=== PATIENT | female | born 1940 | race Caucasian/White ===

== ENCOUNTER → 2018-05-31 | Outpatient (CLI) | payer OTHER ==
[2018-05-31 14:03] LABS: HEMOGLOBIN 14.4 g/dl (12.0-15.5); MEAN CORPUSCULAR HEMOGLOBIN 30.1 pg (27.0-33.0); MEAN CORPUSCULAR HGB CONC 32.7 g/dl (32.0-36.5); MEAN CORPUSCULAR VOLUME 92.1 fl (80.0-96.0); PLATELET COUNT, AUTOMATED 144 10^3/uL (150-450); RED BLOOD COUNT 4.78 10^6/uL (4.00-5.40); RED CELL DISTRIBUTION WIDTH 12.2 % (11.5-14.5); WHITE BLOOD COUNT 19.1 10^3/uL (4.0-10.0)
[2018-05-31 14:18] LABS: ALBUMIN 4.4 GM/DL (3.2-5.2); ALBUMIN/GLOBULIN RATIO 1.76 (1.00-1.93); ALKALINE PHOSPHATASE 62 U/L (45-117); ALT/SGPT 17 U/L (12-78); ANION GAP 7 MEQ/L (8-16); AST/SGOT 12 U/L (7-37); BILIRUBIN,TOTAL 0.5 MG/DL (0.2-1.0); BLOOD UREA NITROGEN 16 MG/DL (7-18); CALCIUM LEVEL 9.4 MG/DL (8.8-10.2); CARBON DIOXIDE LEVEL 31 MEQ/L (21-32); CHLORIDE LEVEL 101 MEQ/L (98-107); CHOLESTEROL LEVEL 133 MG/DL (<200); CHOLESTEROL RISK RATIO 2.293 (<5); CREATININE FOR GFR 0.57 MG/DL (0.55-1.30); GLOMERULAR FILTRATION RATE > 60.0 (>39); GLUCOSE, FASTING 99 MG/DL (70-100); HDL CHOLESTEROL 58 MG/DL (>40); LDL CHOLESTEROL 59 MG/DL (<100); NON-HDL-C 75 MG/DL; POTASSIUM SERUM 3.9 MEQ/L (3.5-5.1); SODIUM LEVEL 139 MEQ/L (136-145); TOTAL PROTEIN 6.9 GM/DL (6.4-8.2); TRIGLYCERIDES LEVEL 78 MG/DL (<150)
[2018-05-31 14:45] LABS: ESTIMATED AVERAGE GLUCOSE 143 MG/DL (60-110); HEMOGLOBIN A1c 6.6 %
== END ==
LOC: M SMT 10:29
DX: E11.9 Type 2 diabetes mellitus without complications (principal); I10 Essential (primary) hypertension; E78.5 Hyperlipidemia, unspecified
CPT/HCPCS: 80053

== ENCOUNTER → 2018-05-31 | Outpatient (CLI) | payer OTHER ==
[2018-05-31 14:11] LABS: ALBUMIN 4.3 GM/DL (3.2-5.2); ANION GAP 6 MEQ/L (8-16); BLOOD UREA NITROGEN 15 MG/DL (7-18); CALCIUM LEVEL 9.5 MG/DL (8.8-10.2); CARBON DIOXIDE LEVEL 32 MEQ/L (21-32); CHLORIDE LEVEL 101 MEQ/L (98-107); CREATININE FOR GFR 0.56 MG/DL (0.55-1.30); GLOMERULAR FILTRATION RATE > 60.0 (>39); GLUCOSE, FASTING 100 MG/DL (70-100); PHOSPHORUS LEVEL 3.4 MG/DL (2.5-4.9); POTASSIUM SERUM 3.8 MEQ/L (3.5-5.1); SODIUM LEVEL 139 MEQ/L (136-145)
[2018-06-01 14:06] LABS: HEMOGLOBIN 14.4 g/dl (12.0-15.5); MEAN CORPUSCULAR HEMOGLOBIN 30.1 pg (27.0-33.0); MEAN CORPUSCULAR HGB CONC 32.7 g/dl (32.0-36.5); MEAN CORPUSCULAR VOLUME 92.1 fl (80.0-96.0); PLATELET COUNT, AUTOMATED 144 10^3/uL (150-450); RED BLOOD COUNT 4.78 10^6/uL (4.00-5.40); RED CELL DISTRIBUTION WIDTH 12.2 % (11.5-14.5); WHITE BLOOD COUNT 19.1 10^3/uL (4.0-10.0)
== END ==
LOC: M SMT 10:39
DX: I11.9 Hypertensive heart disease without heart failure (principal); I25.10 Atherosclerotic heart disease of native coronary artery without angina pectoris

== ENCOUNTER → 2018-05-31 | Outpatient (CLI) | payer OTHER ==
[2018-05-31 14:43] LABS: ALBUMIN 4.4 GM/DL (3.2-5.2); ALBUMIN/GLOBULIN RATIO 1.57 (1.00-1.93); ALKALINE PHOSPHATASE 66 U/L (45-117); ALT/SGPT 19 U/L (12-78); ANION GAP 7 MEQ/L (8-16); AST/SGOT 9 U/L (7-37); BILIRUBIN,TOTAL 0.5 MG/DL (0.2-1.0); BLOOD UREA NITROGEN 16 MG/DL (7-18); CALCIUM LEVEL 9.3 MG/DL (8.8-10.2); CARBON DIOXIDE LEVEL 31 MEQ/L (21-32); CHLORIDE LEVEL 99 MEQ/L (98-107); CHOLESTEROL LEVEL 136 MG/DL (<200); CHOLESTEROL RISK RATIO 2.385 (<5); CREATININE FOR GFR 0.57 MG/DL (0.55-1.30); GLOMERULAR FILTRATION RATE > 60.0 (>39); GLUCOSE, FASTING 103 MG/DL (70-100); HDL CHOLESTEROL 57 MG/DL (>40); LDL CHOLESTEROL 63 MG/DL (<100); NON-HDL-C 79 MG/DL; POTASSIUM SERUM 3.8 MEQ/L (3.5-5.1); SODIUM LEVEL 137 MEQ/L (136-145); TOTAL PROTEIN 7.2 GM/DL (6.4-8.2); TRIGLYCERIDES LEVEL 79 MG/DL (<150)
[2018-05-31 14:47] LABS: MALB URINE SIEMENS 14.1 MG/L
[2018-05-31 14:51] LABS: MAU/CREAT RATIO 11.9 MCG/MG (0.0-30.0)
== END ==
LOC: M SMT 10:36
DX: E11.9 Type 2 diabetes mellitus without complications (principal)
CPT/HCPCS: 80053; 82043

== ENCOUNTER → 2018-06-02 | Outpatient (CLI) | payer OTHER, MEDICAID | LOC: M SLEEP 20:00 | DX: G47.33 Obstructive sleep apnea (adult) (pediatric) (principal) | CPT/HCPCS: 95810 ==

== ENCOUNTER → 2018-08-11 | Outpatient (CLI) | payer MEDICARE ==
[~2018-08-11] MED LIST: ALEN70TA57 PO; ASPI1TAB PO; ATEN50TA2 PO; CETI10TA PO; CLOP75TA2 PO; CRES20TA PO; EPIP0.3I2 IJ; FISH1000 PO; GLUCTAB PO; INCR1INH IN; LOSA50TA88 PO; NITR4TASL SL; OXYB10TA PO; PANT40TA3 PO; SPIR-10 PO; VITA200016 PO
--- NOTE | 2018-08-14 11:17 | SLEEPCENT ---
DATE OF PROCEDURE: 08/11/2018 ORDERING PROVIDER: Dr. Frances Nocturnal polysomnography was performed for retitration of pressure therapy in this patient with obstructive sleep apnea syndrome. Apnea-hypopnea index 11.2. For testing, the patient was fit with a [employer] nasal pillows device of small size, 4 cm of water pressure were applied to the circuit, and the lights were extinguished. 7 hours and 13 minutes of data were reviewed. There were 311 minutes of sleep identified. Sleep latency was normal at 27 minutes. Rapid eye movement (REM) latency was normal at 68 minutes. Sleep architecture was fair with some fragmentation late in the study. There were three REM cycles noted. Overall sleep efficiency was 74%. Electrocardiogram showed a sinus rhythm with PVCs. Average heart rate was 56 beats per minute. Electroencephalogram (EEG) showed reasonably normal waveforms for awake and sleep. Respiratory events were reasonably palliated with CPAP at a pressure of +10. There was some mild breakthrough hypopneas but minimal desaturations at that level. There was also some activity noted in the limb leads. Limb movement arousal index on this occasion was 6.2. IMPRESSION: Obstructive sleep apnea syndrome (G47.33). RECOMMENDATIONS: Nightly use of pressure therapy 10 cm of water.
== END ==
LOC: M SLEEP 20:00
PROVIDERS: ATTEND Physician Assistant
DX: G47.33 Obstructive sleep apnea (adult) (pediatric) (principal)

== ENCOUNTER → 2021-04-20 | Outpatient (REF) | payer MEDICARE ==
[~2021-04-20] MED LIST changes: -ALEN70TA57 PO; +ALEN70TA82 PO; -ASPI1TAB PO; +ASPI81TA26 PO; -CRES20TA PO; +CRES20TA2 PO; -OXYB10TA PO; +OXYB10TA23 PO; +PANT40TA29 PO; -PANT40TA3 PO
[2021-04-20 18:15] LABS: CREATININE, URINE 76.9 MG/DL; MALB URINE SIEMENS 79.5 MG/L; MAU/CREAT RATIO 103.3 MCG/MG (0.0-30.0)
== END ==
LOC: M LAB REF 17:25
PROVIDERS: ATTEND Nurse Practitioner Family
DX: E11.9 Type 2 diabetes mellitus without complications (principal)

== ENCOUNTER 2023-04-09 15:52 | Emergency (ER) | payer MEDICARE ==
[~2023-04-09] VITALS: Ht 160 cm; Wt 69.7 kg
[~2023-04-09 15:52] MED LIST changes: +LOSA50TA28 PO; -LOSA50TA88 PO
[2023-04-09] MEDS ORDERED: IMBR420T (16:03)
[2023-04-09] MEDS ORDERED: NS 1,000 ML IV ONE (17:35)
[2023-04-09 18:43] LABS: BASO # 0.1 10^3/uL (0.0-0.2); BASO % 0.8 % (0.0-1.0); EOS % 0.1 % (0.0-3.0); HEMATOCRIT 40.9 % (36.0-47.0); HEMOGLOBIN 13.6 g/dl (12.0-15.5); LYMPH # 4.4 10^3/uL (1.5-5.0); LYMPH % 41.4 % (24.0-44.0); MEAN CORPUSCULAR HEMOGLOBIN 30.4 pg (27.0-33.0); MEAN CORPUSCULAR HGB CONC 33.3 g/dl (32.0-36.5); MEAN CORPUSCULAR VOLUME 91.3 fl (80.0-96.0); MONO # 0.8 10^3/uL (0.0-0.8); MONO % 7.9 % (2.0-8.0); NEUTROPHILS # 5.1 10^3/uL (1.5-8.5); NEUTROPHILS % 48.4 % (36.0-66.0); PLATELET COUNT, AUTOMATED 135 10^3/uL (150-450); RED BLOOD COUNT 4.48 10^6/uL (4.00-5.40); WHITE BLOOD COUNT 10.6 10^3/uL (4.0-10.0)
[2023-04-09 18:58] LABS: INR 1.01
[2023-04-09 18:59] LABS: PARTIAL THROMBOPLASTIN TIME 23.4 SECONDS (24.8-34.2)
[2023-04-09 19:16] LABS: ALBUMIN 3.7 G/DL (3.2-5.2); ALKALINE PHOSPHATASE 49 U/L (46-116); ALT/SGPT 12 U/L (7.0-40); AST/SGOT < 8 U/L (<34); BILIRUBIN,DIRECT 0.4 MG/DL (<0.4); BLOOD UREA NITROGEN 13 MG/DL (9-23); CALCIUM LEVEL 9.2 MG/DL (8.3-10.6); CARBON DIOXIDE LEVEL 27 MMOL/L (20-31); CHLORIDE LEVEL 105 MMOL/L (98-107); CREATININE FOR GFR 0.67 MG/DL (0.55-1.30); GLOMERULAR FILTRATION RATE > 60.0 (>32); GLUCOSE, FASTING 98 MG/DL (74-106); POTASSIUM SERUM 3.6 MMOL/L (3.5-5.1); SODIUM LEVEL 141 MMOL/L (136-145); TOTAL PROTEIN 6.1 G/DL (5.7-8.2)
[2023-04-09 19:25] LABS: RSV AMPLIFICATION NEGATIVE (NEGATIVE)
[2023-04-09] MEDS ORDERED: ISOVUE-370 76% 100ML VIAL As Ordered ONE (19:31)
[2023-04-09] MEDS ORDERED: LIDOCAINE 2% 5ML JELLY UROJET TOP ONE (21:15)
[2023-04-10] VITALS: BP 137/65; TEMP 97.4; O2SAT 96
== END 2023-04-10 00:12 | disposition home or self-care (01) ==
LOC: M ED 15:52
DX: S37.22XA Contusion of bladder, initial encounter (principal); R31.9 Hematuria, unspecified; E11.9 Type 2 diabetes mellitus without complications; I10 Essential (primary) hypertension; E78.5 Hyperlipidemia, unspecified; K21.9 Gastro-esophageal reflux disease without esophagitis; J44.9 Chronic obstructive pulmonary disease, unspecified; Z86.79 Personal history of other diseases of the circulatory system; Z88.1 Allergy status to other antibiotic agents; Z88.8 Allergy status to other drugs, medicaments and biological substances; Z79.82 Long term (current) use of aspirin; Z79.4 Long term (current) use of insulin; Z79.899 Other long term (current) drug therapy
CPT/HCPCS: 36415; 74177; 80048; 80076; 81000; 81015; 83605; 85025; 85610; 85730; 86850; 86900; 86901; 87040; 87077; 87086; 87186; 87631; 99284; Q9967

== ENCOUNTER → 2023-04-21 | Outpatient (REF) | payer MEDICARE ==
[~2023-04-21] MED LIST changes: +IMBR420T
== END ==
LOC: M SMT 17:20
PROVIDERS: ATTEND Specialist
DX: R31.0 Gross hematuria (principal)

== ENCOUNTER → 2023-07-03 | Outpatient (CLI) | payer MEDICARE | LOC: M RAD 10:47 | PROVIDERS: ATTEND Specialist | DX: N13.30 Unspecified hydronephrosis (principal) ==